=== PATIENT | male | born 1965 | race Caucasian/White ===

== ENCOUNTER 2017-09-08 10:00 | Day surgery (SDC) | payer OTHER ==
[~2017-09-08] VITALS: Ht 175.3 cm; Wt 86.2 kg
[2017-09-08] MEDS ORDERED: IBUPROFEN800 MG PO (10:08)
--- NOTE | 2017-09-08 11:28 | NUR ---
09/08/17 1128 Nicol Jorgensen 1122-PATIENT ARRIVED TO PACU ON 10L MASK O2 SAT 100% PATIENT REQUIRING RN TO HOLD AIRWAY. SR.
--- NOTE | 2017-09-08 12:05 | NUR ---
ICED WATER AND PUDDING GIVEN. SPOUSE @ BS. CALL LIGHT W/IN REACH.
[2017-09-08] MEDS ORDERED: NORCO 5-325 TA1 EACH PO (12:10)
--- NOTE | 2017-09-08 14:27 | NUR ---
LE 1300: PT UP TO BR W/RN STANDBY. PT AMBULATES WELL AND DENIES DIZZINESS. PT REPORTS VOID AND REQ DC HOME. VERBAL INSTRUCTIONS GIVEN FOR DC AND HE AND HIS SPOUSE BOTH VERBALIZE UNDERSTANDING. PT DRESSES SELF AND TRANSFERS SELF TO WELL.
--- NOTE | 2017-09-08 21:50 | OR ---
[facility] [address] [place], [place] [address] Signed DATE OF OPERATION: 09/08/2017 SURGEON: Erna Romero MD PREOPERATIVE DIAGNOSIS: Left posterior cervical triangle subcutaneous mass (6 x 2 cm). POSTOPERATIVE DIAGNOSIS: Left posterior cervical triangle subcutaneous mass (6 x 2 cm). PROCEDURE: Excision of left posterior cervical triangle subcutaneous mass. ESTIMATED BLOOD LOSS: None. INDICATIONS: Wil is a 52-year-old gentleman, who over the last 4 to 5 years has had a subcutaneous mass in his left posterior cervical triangle. It continues to increase in size. It is now 6 cm in diameter. To his knowledge, it has never been infected or it has never drained. At this point, he is having a hard time wearing a hat while at work. To his knowledge, he has never had any trauma. It does not seem to affect his underlying muscle or any feeling in his arm. He does not smoke or drink. He occasionally uses chewing tobacco. Finally with encouragement of his , he went to his primary care provider. A CT scan was ordered and there is a 56 x 57 x 21 mm subcutaneous mass. Ideally, it is not clear. Consequently, I was asked to see him as a general surgeon. In the office, I talked to Wil and his about a CT scan versus surgical excision. They decided to go straight to surgical excision. I can feel the mass. It felt like it was between the skin and the underlying occipital bone and the muscles in the neck. I explained to Wil the nature of the incision required to remove that lesion. It is large enough, he might need a subcutaneous drain. He also understands expected intraop and postop course. We did review the risks including, but not limited to, bleeding, infection, scarring, change in contour of the skin, recurrent masses in the same location, and damage to the spinal accessory nerve. He had expressed understanding and wished to proceed. PROCEDURE NOTE: I met with Wil and his in our preop area. We could all easily identify the lesion. It was appropriately marked. After this, Wil was taken into the operating room and placed in the right lateral decubitus position under general LMA anesthesia. He Electronically Signed By: ERNA ROMERO MD 09/08/17 2150 PATIENT NAME: WIL MUNIZ OPERATIVE REPORT DATE OF : 65 PHYSICIAN: ERNA ROMERO MD REPORT #: [id number] REPORT IS CONFIDENTIAL AND NOT TO BE RELEASED WITHOUT AUTHORIZATION [facility] [address] [place], [place] [address] Signed was given preoperative antibiotics along with subcutaneous heparin. SCDs were utilized. Appropriate padding and monitoring were placed. After this, he was prepped and draped in the usual sterile fashion. A transverse incision was made over the lesion and carried down through the tissue bluntly and with the cautery. 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 We carefully and slowly worked our way around the periphery of the lesion. It traveled almost to the nuchal prominence and it traveled along the inferior portion of the occipital bone almost to the mastoid process, just posterior to the left ear. It also traveled somewhat inferiorly on both sides and overlying the top of the muscles. We used the cautery and as we came over the top and as we approached underneath, we used more and more blunt dissection. Eventually, we had the entire lesion thus removed. The wound was then irrigated and suctioned out until clear. Local anesthetic was carefully injected in the wound and underneath the subcutaneous tissues. The wound was irrigated once again and then the dermis was reapproximated with interrupted 3-0 Monocryl sutures. The skin edges were reapproximated with a running 6-0 fast absorbing plain gut suture. Dry gauze and tape were then applied. Wil was then awakened from his anesthesia, extubated in the OR, and taken to recovery room in stable condition. Erna Romero MD [facility] /[id number] cc: Jaspreet Rush DO Electronically Signed By: ERNA ROMERO MD 09/08/17 2150 PATIENT NAME: WIL MUNIZ OPERATIVE REPORT DATE OF : 65 PHYSICIAN: ERNA ROMERO MD REPORT #: [id number] REPORT IS CONFIDENTIAL AND NOT TO BE RELEASED WITHOUT AUTHORIZATION
== END 2017-09-08 13:10 | disposition home or self-care (01) ==
LOC: DS 10:00
PROVIDERS: Colon & Rectal Surgery
PROC: 0JB50ZZ Excision of Left Neck Subcutaneous Tissue and Fascia, Open Approach (ICD-10-PCS; principal; 2017-09-08 12:15)
DX: E65 Localized adiposity (principal); Z98.52 Vasectomy status; Z98.890 Other specified postprocedural states; Z79.899 Other long term (current) drug therapy
CPT/HCPCS: 00300; J0690; J1100; J1644; J2250; J2405; J2704; J3010; J7120